=== PATIENT | female | born 1980 | race Caucasian/White ===

== ENCOUNTER 2023-02-05 19:48 | Outpatient (REF) | payer OTHER, SELFPAY ==
[2023-03-11 11:26] LABS: Age Gdln ACOG Testing Note (.); HPV Aptima Negative (Negative); IGP, Aptima HPV, rfx 16/18,45 Note (.)
== END 2023-02-05 19:49 | disposition home or self-care (01) ==
LOC: LAB 19:48
PROVIDERS: PCP Obstetrics & Gynecology; Visit Provider Obstetrics & Gynecology
DX: Z12.4 Encounter for screening for malignant neoplasm of cervix (principal); Z11.51 Encounter for screening for human papillomavirus (HPV)
CPT/HCPCS: 87624; G0145

== ENCOUNTER 2024-02-08 21:04 | Outpatient (REF) | payer OTHER, SELFPAY ==
[2024-02-11 19:11] LABS: Age Gdln ACOG Testing Note (.); HPV Aptima Negative (Negative); IGP, Aptima HPV, rfx 16/18,45 Note (.)
== END 2024-02-08 21:05 | disposition home or self-care (01) ==
LOC: LAB 21:04
PROVIDERS: PCP Obstetrics & Gynecology; Visit Provider Obstetrics & Gynecology
DX: Z01.419 Encounter for gynecological examination (general) (routine) without abnormal findings (principal)
CPT/HCPCS: 87624; 88175